=== PATIENT | male | born 1930 | race Caucasian/White ===

== ENCOUNTER → 2017-07-22 | Outpatient (CLI) | payer MEDICARE, OTHER ==
[~2017-07-22] MED LIST: ALBUTEROL2.5 MG/0.5 INH; ASPIR 8181 MG PO; ASPIRIN EC325 MG PO; ATIVAN1 M1 PO; ATIVAN1 MG PO; AZITHROMYCIN 2250 MG PO; CARDIZEM CD120 MG PO; CARDIZEM CD240 MG PO; CEFDINIR300 MG PO; CEFUROXIME500 MG PO; CITRATE OF MAG296 ML PO; CLONIDINE0.1 PO; COUMADIN 2 MG TA2 M1 PO; COUMADIN 5 MG TA5 M1 PO; COZAAR 25 MG TA25 M1 PO; COZAAR 25 MG TA25 M2 PO; DILTIAZEM ER240 M1 PO; DIOVAN HCT 1601 EACH PO; DOXYCYCLINE 10100 MG PO; DUONEB 2.5-0.5 M3 ML INH; ELIQUIS2.5 MG PO; FLONASE 0.05%50 MCG NASAL; HOME RESPIRATORY TX MISCELL; HYDROCHLOROTH12.5 M2 PO; KEFLEX250 MG; KEFLEX500 MG PO; LASIX 20 MG TAB20 MG PO; LEVAQUIN 750 M750 MG PO; LORTAB 5 MG/5001 TA1 PO; LOSARTAN-HCTZ1 EACH PO; METAMUCIL PACK3.4 GM PO; MILK OF MA2400 MG/10 PO; OXYCODONE HCL 55 MG PO; PACERONE 200 M200 M1 PO; PLAVIX 75 MG TA75 M1 PO; PREDNISONE 10 M10 M1 PO; PREDNISONE 10 M10 MG PO; PREDNISONE 20 M20 MG PO; PREDNISONE 5 MG5 MG PO; PRILOSEC 20 MG20 MG PO; PROAIR HFA8.5 GM INH; PROCHAMBER1 EACH INH; SYMBICORT160 MCG/4. INH; TESSALON PERLE100 MG PO; TORADOL 10 MG T10 MG PO; VITAMIN D3400 UNIT PO; ZPAK PO
== END ==
LOC: M.RAD 09:08
DX: J84.9 Interstitial pulmonary disease, unspecified (principal); I48.0 Paroxysmal atrial fibrillation; J44.9 Chronic obstructive pulmonary disease, unspecified; N18.9 Chronic kidney disease, unspecified

== ENCOUNTER 2017-07-26 06:38 | Inpatient (IN) | payer MEDICARE, OTHER ==
[2017-07-15 09:27] LABS: ABSOLUTE BASOPHILS 0.1 thou/uL (0.0-0.2); ABSOLUTE EOSINOPHILS 0.4 thou/uL (0.0-0.7); ABSOLUTE LYMPHOCYTES 2.3 thou/uL (0.8-5.3); ABSOLUTE MONOCYTES 0.6 thou/uL (0.0-1.2); ABSOLUTE NEUTROPHILS 5.5 thou/uL (1.6-8.1); EOSINOPHILS 4.1 %; HEMATOCRIT 45.4 % (42.0-52.0); HEMOGLOBIN 15.5 gm/dL (14.0-18.0); LYMPHOCYTES 26.3 %; MCH 32.6 pg (26.0-34.0); MCV 95.9 fL (80.0-100.0); MONOCYTES 6.4 %; MPV 8.7 fl. (7.2-11.1); NUCLEATED RBCS 0 /100WBC; PLATELET COUNT* 168 thou/uL (150-400); POLYS 62.2 %; RBC 4.74 mil/uL (4.50-6.00); WBC 8.9 thou/uL (4.0-11.0)
[2017-07-15 09:31] LABS: APTT 24.8 Seconds (25.0-31.3); INR 1.1; PROTIME 10.6 Seconds (9.20-11.50)
[2017-07-15 09:38] LABS: ALBUMIN 3.8 g/dL (3.4-5.0); CALCIUM 8.7 mg/dL (8.5-10.1); CREATININE 2.1 mg/dL (0.6-1.3); POTASSIUM 3.7 mmol/L (3.5-5.1); TOTAL BILIRUBIN 0.7 mg/dL (<0.1-1.0); TOTAL PROTEIN 7.3 g/dL (6.4-8.2)
[2017-07-15 10:27] LABS: ESR (SEDRATE) 1 mm/hr (0-20)
--- NOTE | 2017-07-16 17:05 | EKG ---
[place] [address] ELECTROCARDIOGRAM REPORT Name: ZO HAYWARD Room: PRE IN [facility]#: [id number] Admission: Attend Phys: Jef Cabrera Discharge: Date of : 34 Report #: [id number] THIS REPORT FOR: //name// [facility] Test Date: 2017-07-15 Test Time: 09:10:22 Pat Name: ZO HAYWARD Department: Room: Gender: M Living Skills Advisor: : 1930 Requested By: Pablo Styles Order Number: [id number] Reading MD: Howard Villa Measurements Intervals [place] Rate: 53 P: 40 MO: 162 QRS: 28 QRSD: 98 T: 7 QT: 469 QTc: 441 Interpretive Statements Sinus rhythm Inferior infarct, old Compared to ECG 09/30/2016 22:54:59 Myocardial infarct finding now present Electronically Signed On 07-16-2017 17:05:13 CDT by Howard Villa [email or web address] <ELECTRONICALLY SIGNED> By: Howard Villa MD, [facility] 07/16/17 1705 0910 9 Howard Villa MD, FACC /EPI
[~2017-07-26] VITALS: Ht 172.7 cm; Wt 86.6 kg
[~2017-07-26 06:38] MED LIST changes: -CARDIZEM CD120 MG PO; -ELIQUIS2.5 MG PO; -METAMUCIL PACK3.4 GM PO; -OXYCODONE HCL 55 MG PO; -PROCHAMBER1 EACH INH
[2017-07-26 07:18] VITALS: BP 168/64
[2017-07-26 14:33] VITALS: BP 115/50
[2017-07-26 20:00] VITALS: BP 113/50
[2017-07-27] VITALS: BP 98/59
[2017-07-27 02:24] LABS: URINE BILIRUBIN NEGATIVE (Negative); URINE BLOOD NEGATIVE (Negative); URINE CLARITY CLEAR; URINE COLOR YELLOW; URINE GLUCOSE-RANDOM TRACE (Negative); URINE KETONES NEGATIVE (Negative); URINE LEUKOCYTES-REFLEX NEGATIVE (Negative); URINE NITRITE-REFLEX NEGATIVE (Negative); URINE PROTEIN NEGATIVE (Negative); URINE UROBILINOGEN 0.2 E.U./dl (0.2-1.0)
[2017-07-27 04:00] VITALS: BP 109/59
[2017-07-27 05:51] LABS: HEMATOCRIT 35.4 % (42.0-52.0)
[2017-07-27 08:20] VITALS: BP 109/50
[2017-07-27] MEDS ORDERED: CARDIZEM CD120 MG PO (10:08)
[2017-07-27 11:30] VITALS: BP 96/51
[2017-07-27] MEDS ORDERED: OXYCODONE HCL 55 MG PO (14:56)
[2017-07-27] MEDS ORDERED: ELIQUIS2.5 MG PO (14:57)
[2017-07-27] MEDS ORDERED: CARDIZEM CD240 MG PO (15:05)
[2017-07-27] MEDS ORDERED: PROCHAMBER1 EACH INH (15:10)
[2017-07-27] MEDS ORDERED: METAMUCIL PACK3.4 GM PO (15:17)
[2017-07-27 15:19] VITALS: BP 96/51
[2017-07-27 15:25] VITALS: BP 96/51
--- NOTE | 2017-07-28 13:10 | PATH ---
[facility] [address] [place] [address] PATHOLOGY RPT PROCEDURE Name: ZO HAYWARD Room: [address] M.R.#: [id number] Admission: 07/26/17 Date of : 34 Discharge: 07/27/17 Report #: [id number] Path Case #: [id number] [facility] Accession Number: [id number] . 01 Material submitted: . RIGHT HIP BONE AND TISSUE . 01 Clinical history: . Right hip degenerative joint disease . 02 Diagnosis: Right hip bone and tissue: - Benign dense fibrous connective tissue, mild non-specific chronic synovitis and benign femoral head tissues with degenerative changes. (ARGENIS:db; 07/28/2017) LBQ/07/28/2017 . 02 Electronically signed: . Manpreet Barton MD, Pathologist NPI- [id number] . 01 Gross description: . Received in formalin labeled "Zo Hayward, right hip bone and tissue," is a femoral head measuring 5.2 x 4.9 x 3.4 cm in greatest dimensions admixed with soft tissue and bone reamings. The articular surface is smooth to granular and pale zepeda to dark brown in appearance, with no gross evidence of eburnation. Sectioning reveals a pale yellow to slightly hemorrhagic marrow space. Interactive Media Director bone and soft tissue are submitted in cassette A1, following decalcification. ([facility]; 07/27/2017) XDC/XDC . 02 CPT . 278961, 500127 Performed at: [address], [place], [place] [id number] MD Layton Moore MD Phone: [phone] Performed at: 02 [facility] [address], [place], [place] [id number] MD Manpreet Barton MD Phone: [phone]
--- NOTE | 2017-08-16 11:40 | OP ---
[address] [address] OPERATIVE REPORT Name: ZO HAYWARD Room: [address] IN ..#: [id number] Admission: 07/26/17 Attend Phys: Jef Cabrera Discharge: 07/27/17 Date of : 34 Report #: [id number] THIS REPORT FOR: //name// CC: Oseas Santana DICTATED BY: Gregory Werner DO DATE OF SERVICE: 07/26/2017 PREOPERATIVE DIAGNOSIS: Advanced degenerative joint disease, right hip. POSTOPERATIVE DIAGNOSIS: Advanced degenerative joint disease, right hip. PROCEDURE PERFORMED: Right total hip arthroplasty. PRIMARY SURGEON: Pablo Styles DO SUPERINTENDENT TESTS: Gregory Werner DO ANESTHESIA: General with local capsular block. ESTIMATED BLOOD LOSS: 650 mL, 240 returned via Cell Saver. SPECIMENS: None. COMPLICATIONS: None. ANTIBIOTICS: Ancef 2 grams preoperatively. IMPLANTS USED: A G7 finned G7 acetabular shell size 58, a high wall acetabular liner 40 mm, 3 acetabular screws, a Taperloc micro high offset 14 mm stem, -3 neck and a 40 mm ceramic head. INDICATIONS: The patient is an 87-year-old male that has been seen in our clinic multiple times regarding his right hip pain. Unfortunately, he has not responded to conservative treatments; over the past 6 months, his pain has been bothering him. From the past few years, it is affecting his quality of life and ability to perform ADLs. He presents today for the above-mentioned procedure. Risks, benefits, complications and alternatives of surgery have been reviewed and discussed with him. He is wishing to proceed. DESCRIPTION OF PROCEDURE: The patient was taken to the OR suite, placed supine on the OR table, given the benefit of general anesthetic. The patient was prepped and draped in the usual sterile fashion. Prior to procedure, [place] [address] OPERATIVE REPORT Name: ZO HAYWARD Room: [address]#: [id number] Admission: 07/26/17 Attend Phys: Jef Cabrera Discharge: 07/27/17 Date of : 34 Report #: [id number] was taken confirming correct site, patient and procedure. Procedure began with a standard anterior total hip incision over the tensor fascia muscle. Dissection was carried down to the level of the tensor fascia. This was incised longitudinally exposing the tensor muscle. The tensor muscle was retracted laterally. The sartorius was retracted medially. The lateral circumflex vessels were then encountered. These were appropriately cauterized with Aquamantys. This allowed us to expose our anterior hip capsule. Appropriate retractors were placed. The anterior third capsulectomy was performed on the anterior hip capsule exposing the femoral neck and head. A femoral neck cut was made 1 fingerbreadth proximal to the lesser trochanter, femoral head and neck was removed exposing the acetabulum. All excess labral tissue and synovium and foveal ligament were removed from within the acetabulum. Reaming was begun, a size 54. The patient was very osteoporotic. Reaming was done under direct visualization. Due to the poor bone quality, reaming was done to the inner table and just beyond this, we still had a circumferential bony stability with the posterior, superior, and anterior wall. We increased reaming size up to a size [address] place a 58 cup. The acetabulum was back filled with bone graft and 3 cancellous acetabular screws were placed within the cup as well with very good stability. The cup was stressed under C-arm guidance as well and was well fixed. A final acetabular liner was placed with the high wall anterior superiorly. We then directed our attention to the femur. Leg was brought into maximum external rotation and extended and adducted. The posterior capsule was released off the posterior aspect of the femoral neck allowing us expose the femoral canal. A box osteotome was used to easily access femoral canal. Bone quality was so soft, this was able to be pushed in by hand. A rattail rasp was used to open up the canal. Broaching was sequentially performed to a size 14 mm trial. This was trialed with a -3 high offset and x-rays taken under C-arm. Leg lengths were symmetrical on these views. Hip was taken out of its leg colindres and taken through range of motion, found to be stable in all planes. We then removed the trial femoral stem and head and neck. The canal was thoroughly irrigated. One gram of vancomycin powder was placed in the wound. The final 14 stem lateral offset was placed and a -3 head and neck were placed as well. This was reduced and a C-arm was brought in for final images. Local capsular block was performed. The tensor fascia was repaired with a Quill. Topical TXA was placed in the wound. Skin was closed with interrupted 2-0 Monocryl followed by running 3-0 V-Loc and Dermabond glue. Sterile dressing was applied. The patient tolerated the procedure well and was transferred to PACU in good stable condition. <ELECTRONICALLY SIGNED> By: Pablo Styles DO 08/16/17 1140 1217 [id number] Ru Styles DO /nt
== END 2017-07-27 18:30 | disposition home health service (06) | DRG 470 ==
LOC: M.PRE 06:38 → M.2W 06:49 → M.TBA 06:49 → M.PRE 09:59 → M.2W 14:29
PROVIDERS: Orthopaedic Surgery; ADMIT Internal Medicine
PROC: 0SR904Z Replacement of Right Hip Joint with Ceramic on Polyethylene Synthetic Substitute, Open Approach (ICD-10-PCS; principal; 2017-07-26)
DX: M16.11 Unilateral primary osteoarthritis, right hip (principal); I50.32 Chronic diastolic (congestive) heart failure; N18.4 Chronic kidney disease, stage 4 (severe); J44.9 Chronic obstructive pulmonary disease, unspecified; I48.91 Unspecified atrial fibrillation; K21.9 Gastro-esophageal reflux disease without esophagitis; E66.9 Obesity, unspecified; R73.03 Prediabetes; I25.10 Atherosclerotic heart disease of native coronary artery without angina pectoris; R33.9 Retention of urine, unspecified; Z86.73 Personal history of transient ischemic attack (TIA), and cerebral infarction without residual deficits; Z68.29 Body mass index [BMI] 29.0-29.9, adult; Z79.01 Long term (current) use of anticoagulants; Z86.718 Personal history of other venous thrombosis and embolism; Z98.42 Cataract extraction status, left eye; Z98.41 Cataract extraction status, right eye; Z90.49 Acquired absence of other specified parts of digestive tract; Z87.891 Personal history of nicotine dependence; Z79.2 Long term (current) use of antibiotics; Z79.82 Long term (current) use of aspirin; Z79.899 Other long term (current) drug therapy